=== PATIENT | female | born 1970 | race Caucasian/White ===

== ENCOUNTER 2017-04-09 09:42 | Day surgery (SDC) | payer OTHER ==
[~2017-04-09] VITALS: Ht 162.6 cm; Wt 105.7 kg
[2017-04-09 10:33] VITALS: BP 120/77; PULSE 72; TEMP 98.5
[2017-04-09] MEDS ORDERED: PRIL40 PO (10:45)
[2017-04-09] MEDS ORDERED: WELLBUTRIN 75MG75 MG PO (10:45)
[2017-04-09] MEDS ORDERED: EFFEXOR-XR150 MG PO (10:45)
[2017-04-09] MEDS ORDERED: CELEBREX 1100 MG/CAP PO (10:46)
[2017-04-09] MEDS ORDERED: NEURONTIN600 MG/TAB PO ×2 (10:46)
[2017-04-09] MEDS ORDERED: MICARDIS HCT 121 TAB PO (10:47)
[2017-04-09 11:45] VITALS: BP 137/88; PULSE 88; TEMP 98.5
[2017-04-09 12:00] VITALS: BP 134/84; PULSE 83
[2017-04-09 12:35] VITALS: BP 109/64; PULSE 83
== END 2017-04-09 12:35 | disposition home or self-care (01) ==
LOC: SDCO 09:42
DX: K21.9 Gastro-esophageal reflux disease without esophagitis (principal); R12 Heartburn; E66.9 Obesity, unspecified; Z88.5 Allergy status to narcotic agent
CPT/HCPCS: J2250; J3010; J7030